=== PATIENT | male | born 1970 | race Caucasian/White ===

== ENCOUNTER 2023-11-27 14:02 | Emergency (ER) | payer OTHER, SELFPAY ==
--- NOTE | 2023-11-27 14:10 | ECG_ITS ---
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 Measurements Intervals [place] Rate: 84 P: 63 GA: 188 QRS: 78 QRSD: 100 T: 48 QT: 342 QTc: 404 Interpretive Statements SINUS RHYTHM POSSIBLE INFERIOR MYOCARDIAL INFARCTION , PROBABLY OLD [30 ms Q WAVE IN II/aVF] No previous ECG available for comparison Electronically Signed On 11-28-2023 20:46:45 CDT by Dez Tiwari M.D. [id number]
[2023-11-27 14:21] VITALS: BP 162/97; PULSE 83; RESP 17; O2SAT 96; BMI 30.2
--- NOTE | 2023-11-27 14:39 | ED_ITS ---
HPI - Chest Pain 2 General: Chief Complaint: Chest Pain Stated Complaint: sob, neck and left shoulder pain Time Seen by Provider: 11/27/23 14:34 History of Present Illness: 53-year-old man with a history of hypert ension who presents the emergency room with chest discomfort. Says over the last day he has been having some increasing chest tightness and developed some discomfort into his left neck and jaw. Also some his left arm. He says he had an minor heart attack recently and has a planned cardiac cath back at home in [place]. He is here visiting. No cough. No fevers. No lower extremity edema. No headaches. No altered mental status. Review of Systems 2 Narrative: Constitutional symptoms: Negative except as documented in HPI. Skin symptoms: Negative except as documented in HPI. Eye symptoms: Negative except as documented in HPI. ENMT symptoms: Negative except as documented in HPI. Respiratory symptoms: Negative except as documented in HPI. Cardiovascular symptoms: Negative except as documented in HPI. Gastrointestinal symptoms: Negative except as documented in HPI. Genitourinary symptoms: Negative except as documented in HPI. Musculoskeletal symptoms: Negative except as documented in HPI. Neurologic symptoms: Negative except as documented in HPI. Psychiatric symptoms: Negative except as documented in HPI. Endocrine symptoms: Negative except as documented in HPI. Physical Exam 2 Narrative: EXAM NARRATIVE: General: Alert, no acute distress. Skin: Warm, dry. Head: Normocephalic, atraumatic. Neck: Supple, trachea midline. Eye: Extraocular movements are intact. Ears, nose, mouth and throat: mucosa moist. Cardiovascular: Regular, Normal peripheral perfusion. Respiratory: Lungs are clear to auscultation, respirations are non-labored, breath sounds are equal, Symmetrical chest wall expansion. Gastrointestinal: Soft, Nontender, Non distended, Normal bowel sounds. Musculoskeletal: Normal ROM, no deformity. Neurological: Alert and oriented, No focal neurological deficit observed. Psychiatric: Cooperative, appropriate mood & affect. Course 2 Vital Signs: Vital signs: Vital Signs Pulse Rate 89 11/27/23 16:15 Respiratory Rate 16 11/27/23 16:15 Blood Pressure 165/102 11/27/23 16:15 Pulse Oximetry 98 11/27/23 16:15 Oxygen Delivery Me thod Room Air 11/27/23 15:03 MDM - Chest Pain Medical Decision Making Differential diagnosis for patient with chest pain includes but is not limited to and based on the above HPI, review of systems and physical exam: Pneumonia. unstable angina. angina. Acute coronary syndrome / [place]. Pulmonary embolism. Costochondritis / musculoskeletal. Pleurisy. Pericarditis. Esophageal spasm. Pancreatis. Cholecystitis. Workup: Lab work, chest X-ray and EKG ordered to evaluate, rule in and rule out above pathologies. Lab Review: Laboratory results were reviewed and interpreted by myself the emergency room physician. Serial cardiac monitors are negative. No ischemic changes on EKG. EK 10 PM rate 84 normal sinus rhythm, No ST-T changes, no ectopy, normal WA & QRS intervals, This was reviewed and interpreted by myself the ER physician at 14 12 PM. EKG: Time 1612 rate 80. Normal sinus rhythm, No ST-T changes, no ectopy, normal WA & QRS intervals, This was reviewed and interpreted by myself the ER physician at 1615. Reexamination: Patient remained stable. No increased work of breathing. No oxygen requirements. No nausea or vomiting. No altered mental status. Lab Data 11/27/23 14:42 11/27/23 14:42 Laboratory Results WBC 7.58 10^3/uL (3.29-11.43) 11/27/23 14:42 RBC 5.48 10^6/uL (3.85-5.65) 11/27/23 14:42 Hgb 17.50 g/dL (11.27-16.99) H 11/27/23 14:42 Hct 50.1 % (37-53) 11/27/23 14:42 MCV 91.4 fl (82-101) 11/27/23 14:42 MCH 31.9 pg (27-33) 11/27/23 14:42 MCHC 34.9 g/dL (30-55) 11/27/23 14:42 RDW 12.6 % (12.1-15.1) 11/27/23 14:42 Plt Count 302 10^3/cmm (157-399) 11/27/23 14:42 MPV 9.6 fL (7.4-10.4) 11/27/23 14:42 Neut % (Auto) 63.6 % 11/27/23 14:42 Lymph % (Auto) 27.2 % 11/27/23 14:42 [place] % (Auto) 7.0 % 11/27/23 14:42 Eos % (Auto) 0.9 % 11/27/23 14:42 Baso % (Auto) 0.8 % 11/27/23 14:42 Neut # (Auto) 4.82 10^3/uL (1.8-7.7) 11/27/23 14:42 Lymph # (Auto) 2.1 10^3/uL (0.8-4.8) 11/27/23 14:42 [place] # (Auto) 0.5 10^3/uL (0.2-0.9) 11/27/23 14:42 Eos # (Auto) 0.1 10^3/uL (0.0-0.8) 11/27/23 14:42 Baso # (Auto) 0.1 10^3/uL (0.0-0.1) 11/27/23 14:42 Nucleated RBC % (auto) 0 % 11/27/23 14:42 Nucleated RBCs # 0.0 /100WBC 11/27/23 14:42 Sodium 138 mmol/L (136-145) 11/27/23 14:42 Potassium 4.2 mmol/L (3.5-5.1) 11/27/23 14:42 Chloride 101 mmol/L (98-107) 11/27/23 14:42 Carbon Dioxide 26 mmol/L (22-29) 11/27/23 14:42 Anion Gap 15.2 (5-19) 11/27/23 14:42 BUN 12 mg/dL (6-20) 11/27/23 14:42 Creatinine 0.7 mg/dL (0.7-1.2) 11/27/23 14:42 GFR Calculation 118.4 mL/min (90-130) 11/27/23 14:42 Glucose 113 mg/dL (65-115) 11/27/23 14:42 Calculated Osmolality 287 mOsm/kg (285-295) 11/27/23 14:42 Calcium 10.1 mg/dL (8.5-10.5) 11/27/23 14:42 Total Bilirubin 0.5 mg/dL (0.15-1.2) 11/27/23 14:42 AST 31 U/L (0-40) 11/27/23 14:42 ALT 35 U/L (0-41) 11/27/23 14:42 Alkaline Phosphatase 68 U/L (40-130) 11/27/23 14:42 Troponin T Baseline 8 ng/L (0-15) 11/27/23 14:42 Troponin T 120 Minute 8.50 ng/L (0-15) 11/27/23 16:33 Delta Troponin T 0.50 ABS# (0-10) 11/27/23 16:33 NT-Pro-B Natriuret Pep < 36 pg/mL (0-125) 11/27/23 14:42 Total Protein 7.8 g/dL (6.6-8.7) 11/27/23 14:42 Albumin 4.7 g/dL (3.5-5.2) 11/27/23 14:42 Globulin 3.1 g/dL (1.3-4.6) 11/27/23 14:42 No radiology studies performed this visit Other Data Assessment and plan: - Discharged home - Discussed plan with patient. Answered any questions. - Evaluation and treatment of this problem were appropriate in the emergency setting. Discharge Plan Discharge Patient Disposition: Home Clinical Impression: Chest pain, Hypertension Condition: Stable Prescriptions: No Action Aspir-81 81 mg Tablet,Delayed Release (Dr/Ec) 162 mg PO .ONE TIME DOSE Discharge Orders: Discharge ED (Routine); Ordered 11/27/23 Ordered By: Love Sanchez Discharge Diet: Usual diet Discharge Activity: Increase activity as tolerated Patient Instructions: Noncardiac Chest Pain (ED) Coding Level of Care Code ED Crematory Attendant for Shamar Barney
[2023-11-27 14:48] LABS: Basophils # 0.1 10^3/uL (0.0-0.1); Basophils % 0.8 %; Eosinophils # 0.1 10^3/uL (0.0-0.8); Eosinophils % 0.9 %; Hematocrit 50.1 % (37-53); Lymphocytes # 2.1 10^3/uL (0.8-4.8); Lymphocytes % 27.2 %; Mean Corpuscular HGB Conc 34.9 g/dL (30-55); Mean Corpuscular Hemoglobin 31.9 pg (27-33); Mean Corpuscular Volume 91.4 fl (82-101); Mean Platelet Volume 9.6 fL (7.4-10.4); Monocytes # 0.5 10^3/uL (0.2-0.9); Neutrophils # 4.82 10^3/uL (1.8-7.7); Neutrophils % 63.6 %; Nucleated Red Blood Cells % 0 %; Platelet Count 302 10^3/cmm (157-399); Red Blood Count 5.48 10^6/uL (3.85-5.65); Red Cell Distribution Width 12.6 % (12.1-15.1); White Blood Count 7.58 10^3/uL (3.29-11.43)
--- NOTE | 2023-11-27 14:48 | PC.PHAR ---
pt states he doesnt take any prescription medications or otc meds-states just took a one time dose of 162mg of aspirin today states hadnt taken aspirin for about 6 weeks
[2023-11-27 15:03] VITALS: BP 153/115; PULSE 77; O2SAT 96
[2023-11-27] MEDS: aspirin 81 mg Chew Tablet 324 MG PO (15:11)
[2023-11-27] MEDS: nitroglycerin 0.4 mg sublingual Tablet 0.400000000000000022 MG SUBLINGUAL (15:12)
[2023-11-27 15:22] LABS: Troponin(5th) Baseline 8 ng/L (0-15)
[2023-11-27 15:40] LABS: Alanine Aminotransferase 35 U/L (0-41); Albumin Level 4.7 g/dL (3.5-5.2); Alkaline Phosphatase 68 U/L (40-130); Aspartate Amino Transferase 31 U/L (0-40); Blood Urea Nitrogen 12 mg/dL (6-20); Calcium 10.1 mg/dL (8.5-10.5); Carbon Dioxide 26 mmol/L (22-29); Chloride 101 mmol/L (98-107); Creatinine Clr Calc Pharmacy 160.5609; Globulin 3.1 g/dL (1.3-4.6); Glomerular Filtration Rate 118.4 mL/min (90-130); Glucose 113 mg/dL (65-115); NT Pro B Type Natriuretic Pept < 36 pg/mL (0-125); Osmolality Calculated 287 mOsm/kg (285-295); Sodium 138 mmol/L (136-145); Total Bilirubin 0.5 mg/dL (0.15-1.2); Total Protein 7.8 g/dL (6.6-8.7)
--- NOTE | 2023-11-27 16:12 | ECG_ITS ---
[facility] Test Date: 2023-11-27 Pat Name: West Weiss Department: Room: Gender: Male [employer] Mill[employer]: : 1970 Requested By: Love Toledo Order Number: [id number] Santoro MD: Dez Tiwari M.D. Measurements Intervals [place] Rate: 80 P: 60 GA: 190 QRS: 68 QRSD: 100 T: 47 QT: 353 QTc: 408 Interpretive Statements SINUS RHYTHM Compared to ECG 11/27/2023 14:10:30 Myocardial infarct finding no longer present Electronically Signed On 11-28-2023 20:55:03 CDT by Dez Tiwari M.D. [id number]
[2023-11-27 16:15] VITALS: BP 165/102; PULSE 89; RESP 16; O2SAT 98
[2023-11-27 16:19] LABS: Anion Gap 15.2 (5-19); Potassium 4.2 mmol/L (3.5-5.1)
[2023-11-27 17:21] VITALS: BP 165/102; PULSE 89; RESP 16; O2SAT 98
== END 2023-11-27 17:22 | disposition home or self-care (01) ==
PROVIDERS: Emergency Provider Emergency Medicine
DX: R07.9 Chest pain, unspecified (principal); I10 Essential (primary) hypertension
CPT/HCPCS: 80053; 83880; 84484; 85025; 93005; 99285